=== PATIENT | male | born 1965 | race Caucasian/White ===

== ENCOUNTER 2022-12-12 16:54 | Emergency (ER) | payer MEDICARE ==
[2022-12-12] MEDS ORDERED: Glucagon,Human Recombinant 1 MG Vial IM PRN (18:25)
[2022-12-12] MEDS ORDERED: 50% Dextrose in Water 50 ML Syringe IVPUSH PRN (18:25)
[2022-12-12 18:28] LABS: HEMOGLOBIN A1C 10.9 % (4.8-5.6)
[2022-12-12] MEDS: Morphine 4 MG/ML VIAL IVPUSH ONE ×2 (18:35→21:26)
[2022-12-12] MEDS: cefTRIAXone 1 GM Vial IVPUSH ONE (18:42)
[2022-12-12] MEDS: Insulin Lispro 100 Units/ML 3 ML Vial SUBCUT STA (18:48)
[2022-12-12] MEDS: Iopamidol 755 Mg/ML 100 ML Bottle IVPUSH ONE (19:28)
[2022-12-12] MEDS: Sodium Chloride 0.9% 1,000 ML IV ONE (19:55)
== END 2022-12-12 22:00 ==
LOC: CC.ED 16:54
DX: E11.52 Type 2 diabetes mellitus with diabetic peripheral angiopathy with gangrene (principal); I96 Gangrene, not elsewhere classified; E11.40 Type 2 diabetes mellitus with diabetic neuropathy, unspecified; N30.01 Acute cystitis with hematuria; E87.1 Hypo-osmolality and hyponatremia; R10.9 Unspecified abdominal pain; M79.661 Pain in right lower leg; Z79.4 Long term (current) use of insulin; Z87.442 Personal history of urinary calculi; Z86.79 Personal history of other diseases of the circulatory system; Z87.19 Personal history of other diseases of the digestive system; Z88.5 Allergy status to narcotic agent; Z88.8 Allergy status to other drugs, medicaments and biological substances
CPT/HCPCS: 36415; 73701-RT; 74177; 80053; 81001; 82947; 83036; 83605; 83690; 85025; 86140; 87040; 87070; 87077; 87086; 87088; 87186; 87205; 96361; 96374; 96375; 96376; 99284; 99284-25; J0696; J1815-GY; J2270; J7030; Q9967

== ENCOUNTER 2023-04-09 15:16 | Emergency (ER) | payer MEDICARE ==
[2023-04-09] MEDS: Morphine 2 MG/ML SYRINGE IV ONE (15:37)
[2023-04-09 15:40] LABS: BASOPHILS ABSOLUTE AUTO 0.04 10^3/uL (0.00-0.50); BASOPHILS PERCENT AUTO 0.4 % (0-1); EOSINOPHILS PERCENT AUTO 0.9 % (0-6); HEMATOCRIT 38.6 % (42.0-52.0); HEMOGLOBIN 13.1 g/dL (14.0-18.0); IMMATURE GRAN ABSOLUTE AUTO 0.04 10^3/uL (0.00-0.49); IMMATURE GRAN PERCENT AUTO 0.4 % (0.0-4.9); LYMPHOCYTES ABSOLUTE AUTO 1.59 10^3/uL (0.60-5.00); LYMPHOCYTES PERCENT AUTO 14.6 % (24-44); MEAN CORPUSCULAR HEMOGLOBIN 28.5 pg (27.0-32.0); MEAN CORPUSCULAR HGB CONC 33.9 g/dL (32.0-36.0); MEAN CORPUSCULAR VOLUME 84.1 fL (83.0-97.0); MONOCYTES ABSOLUTE AUTO 0.69 10^3/uL (0.00-1.50); MONOCYTES PERCENT AUTO 6.3 % (0-10); NEUTROPHILS ABSOLUTE AUTO 8.44 x10^3/uL (1.80-8.00); NEUTROPHILS PERCENT AUTO 77.4 % (41-71); PLATELET COUNT,PLT 357 10^3/uL (150-400); RED BLOOD CELL COUNT 4.59 x10^6/uL (4.50-6.00); WHITE BLOOD CELL COUNT,WBC 10.9 10^3/uL (4.0-11.0)
[2023-04-09 15:56] LABS: LACTIC ACID 1.7 mmol/L (0.4-2.0)
[2023-04-09 16:00] LABS: ALBUMIN 2.9 g/dL (3.4-5.0); BILIRUBIN TOTAL 0.3 mg/dL (0.0-1.0); CALCIUM 9.8 mg/dL (8.4-10.1); CREATININE 0.9 mg/dL (0.7-1.3); EST CRCL DRUG DOSING (CG) 45.92 mL/min; POTASSIUM,K 4.5 mEq/L (3.5-5.0); PROTEIN TOTAL,TP 7.8 g/dL (6.4-8.2)
[2023-04-09] MEDS: Sodium Chloride 0.9% 1,000 ML IV ONE (16:22)
[2023-04-09] MEDS: Iopamidol 755 Mg/ML 100 ML Bottle IVPUSH ONE (16:23)
[2023-04-09 16:25] LABS: INR 0.96 (0.92-1.18); PROTHROMBIN TIME 9.9 SEC (9.3-11.3); PTT,PARTIAL THROMBOPLSTIN TIME 25.3 SEC (20.0-30.0)
[2023-04-09 16:44] LABS: APPEARANCE,URINE SLIGHTLY CLOUDY (CLEAR); BILIRUBIN,URINE NEGATIVE (NEGATIVE); COLOR,URINE YELLOW (YELLOW); GLUCOSE,URINE >=1000 mg/dL (NEGATIVE); KETONES,URINE 15 mg/dL (NEGATIVE); LEUKOCYTE ESTERASE,URINE TRACE (NEGATIVE); NITRITE,URINE POSITIVE (NEGATIVE); OCCULT BLOOD,URINE TRACE-INTACT (NEGATIVE); PROTEIN,URINE 100 mg/dL (NEGATIVE); UROBILINOGEN,URINE 0.2 EU/dL (0.2-1.0)
[2023-04-09] MEDS ORDERED: 50% Dextrose in Water 50 ML Syringe IVPUSH PRN (16:50)
[2023-04-09] MEDS ORDERED: Glucagon,Human Recombinant 1 MG Vial IM PRN (16:50)
[2023-04-09 16:51] LABS: BACTERIA,URINE MODERATE /HPF (NOT SEEN); CALCIUM OXALATE CRYSTALS,URINE OCCASIONAL /HPF (NOT SEEN); EPITHELIAL CELLS,URINE FEW /HPF (NOT SEEN); RBC,URINE 0-5 /HPF (0-5); WBC CLUMPS,URINE OCCASIONAL /HPF (NOT SEEN); WBC,URINE 20-30 /HPF (0-5)
[2023-04-09] MEDS: Insulin Regular, Human 100 Units/ML 3 ML Vial IV ONE (16:52)
[2023-04-09] MEDS: Acetaminophen/oxyCODONE 325-5 MG Tab PO ONE (18:47)
[2023-04-09] MEDS: Take Home: Acetaminophen/oxyCODONE 325-5 MG, 2 Tab Pack PO ONE (18:48)
== END 2023-04-09 22:00 | disposition home or self-care (01) ==
LOC: CC.ED 15:16
DX: I74.5 Embolism and thrombosis of iliac artery (principal); E11.51 Type 2 diabetes mellitus with diabetic peripheral angiopathy without gangrene; Z88.5 Allergy status to narcotic agent; Z79.4 Long term (current) use of insulin
CPT/HCPCS: 36415; 75635; 80053; 81001; 82550; 82800; 83605; 85025; 85610; 85730; 87086; 87088; 87186; 96361; 96374; 99284; 99284-25; A9270-GY; J1815-GY; J2270; J7030; Q9967